=== PATIENT | female | born 1975 | race American Indian/Alaskan Native ===

== ENCOUNTER 2023-09-03 05:13 | Day surgery (SDC) | payer OTHER ==
[2023-08-31 14:01] VITALS: BMI 30.4
[2023-09-03] MEDS ORDERED: MIDAZOLAM HCL 2 MG/2 ML SINGLE DOSE VIAL ONE (11:06)
[2023-09-03] MEDS ORDERED: DEXAMETHASONE SOD PHOSPHATE 4 MG/1 ML VIAL ONE (11:13)
[2023-09-03] MEDS ORDERED: PROPOFOL 40 ML ONE (11:14)
[2023-09-03] MEDS ORDERED: ONDANSETRON 4 MG/2 ML VIAL IVPUSH PRN (11:44)
[2023-09-03] MEDS ORDERED: oxyCODONE HCL 5 MG TABLET PO PRN (11:44)
[2023-09-03] MEDS ORDERED: LACTATED RINGERS SOLUTION 1,000 ML IV SCH (11:45)
[2023-09-03] MEDS ORDERED: PROPOFOL 20 ML ONE (12:00)
[2023-09-03] MEDS ORDERED: KETOROLAC TROMETHAMINE 30 MG/1 ML VIAL ONE (13:22)
[2023-09-03] MEDS ORDERED: ONDANSETRON 4 MG/2 ML VIAL ONE (13:22)
[2023-09-03 18:20] VITALS: RESP 20
[2023-09-03 18:24] VITALS: BP 107/67; PULSE 84; TEMP 97.5
== END 2023-09-03 18:12 | disposition home or self-care (01) ==
LOC: JASU-SURG 05:13
PROVIDERS: ATTEND Obstetrics & Gynecology
PROC: 0U5B8ZZ Destruction of Endometrium, Via Natural or Artificial Opening Endoscopic (ICD-10-PCS; principal; 2023-09-03 13:00)
DX: N92.0 Excessive and frequent menstruation with regular cycle (principal); N84.0 Polyp of corpus uteri
CPT/HCPCS: 81025; 82962; 88305-TC; 94760

== ENCOUNTER 2024-04-25 16:00 | Emergency (ER) | payer OTHER ==
[2024-04-25 16:14] VITALS: PULSE 90; BMI 32.5
[2024-04-25] MEDS ORDERED: KETOROLAC TROMETHAMINE 15 MG/ML VIAL ONE (16:38)
[2024-04-25] MEDS: KETOROLAC TROMETHAMINE 15 MG/ML VIAL IVPUSH ONE (16:42)
[2024-04-25 16:50] LABS: HEMOGLOBIN 8.6 G/dL (10.7-15.3); MCH 26.6 pg (25.7-33.7); MCHC 31.9 g/dl (32.0-36.0); MEAN CELL VOLUME 83.3 fl (80-96); MEAN PLT VOLUME 7.8 fl (7.5-11.1); PLATELET COUNT 382.3 10^3/uL (134-434); RBC 3.24 10^6/uL (3.60-5.2); RDW 15.8 % (11.6-15.6); WHITE BLOOD COUNT 10.7 10^3/uL (4.0-10.8)
[2024-04-25 17:14] LABS: ALBUMIN 4.7 g/dl (3.4-5.0); BILIRUBIN,TOTAL 0.6 mg/dl (0.2-1); CALCIUM 9.4 mg/dl (8.5-10.1); CREATININE 0.7 mg/dl (0.6-1.3); POTASSIUM 3.8 mmol/L (3.5-5.1); TOT PROT 7.7 g/dl (6.4-8.2)
[2024-04-25 17:23] LABS: PLATELET ESTIMATE ADEQUATE
[2024-04-25 17:54] VITALS: BP 121/84; RESP 20; TEMP 97.7
== END 2024-04-25 18:17 | disposition home or self-care (01) ==
LOC: FER 16:00
PROC: 3E0333Z Introduction of Anti-inflammatory into Peripheral Vein, Percutaneous Approach (ICD-10-PCS; principal; 2024-04-25)
DX: N93.8 Other specified abnormal uterine and vaginal bleeding (principal); D25.9 Leiomyoma of uterus, unspecified; R42 Dizziness and giddiness; D64.9 Anemia, unspecified; R10.2 Pelvic and perineal pain
CPT/HCPCS: 36415; 76830-TC; 80053; 84703; 85027; 86850; 86900; 86901; 99284-25